=== PATIENT | male | born 1975 | race Caucasian/White ===

== ENCOUNTER → 2019-02-18 11:17 | Outpatient (CLI) | payer OTHER, BC, SELFPAY ==
[2019-02-18 11:17] VITALS: BMI 35.1
--- NOTE | 2019-02-18 11:46 | RAD_ITS ---
STUDY: X-RAY - RIGHT KNEE REASON FOR EXAM: Pain, fall. TECHNIQUE: 4 view(s) of the knee. COMPARISON: None. FINDINGS: Normal visualized distal femur. Normal visualized proximal tibia and fibula. Normal proximal tibiofibular articulation. Normal medial femorotibial compartment. Normal lateral femorotibial compartment. Normal patellofemoral articulation. The soft tissue structures are unremarkable. RAD/Knee 4 or More Views IMPRESSION: Normal x-ray examination of the right knee. Electronically Signed: Jaya Rod MD at 12:24 EDT Tel , Service support ,
== END ==
PROVIDERS: Referring Provider Physician Assistant Surgical; Visit Provider Physician Assistant Surgical
DX: S86.911A Strain of unspecified muscle(s) and tendon(s) at lower leg level, right leg, initial encounter (principal)
CPT/HCPCS: 73564

== ENCOUNTER → 2019-02-20 14:58 | Outpatient (CLI) | payer OTHER, SELFPAY ==
[2019-02-18 11:17] VITALS: BMI 35.1
--- NOTE | 2019-02-20 15:04 | MRI_ITS ---
STUDY: MRI RIGHT KNEE REASON FOR EXAM: Male, 43 years old. Pain. TECHNIQUE: Standardized fat and water weighted pulse sequences were obtained in all 3 orthogonal planes. COMPARISON: X-ray February 18, 2019 FINDINGS: There is partial tear of the posterior horn of the medial meniscus adjacent to the meniscal root, series 7 image . Normal hyaline cartilage of the medial femorotibial compartment. Normal medial femoral condyle and tibial plateau. Normal medial collateral ligamentous complex (MCL). Normal distal semimembranosus, gracilis and semitendinosus tendons. Normal lateral meniscus. Normal hyaline cartilage of the lateral femorotibial compartment. Normal lateral femoral condyle and tibial plateau. Normal proximal tibiofibular articulation. Normal lateral collateral (fibular) ligament. Normal popliteus tendon. Normal biceps femoris tendon. Normal anterior cruciate ligament (ACL). Normal posterior cruciate ligament (PCL). Normal congruent patellofemoral articulation. Normal hyaline cartilage of the patellofemoral compartment. Normal medial and lateral patellar retinaculum. Normal quadriceps tendon. Normal patellar tendon. Normal Hoffa's fat pad. There is no joint effusion. The soft tissues are unremarkable. The otherwise visualized osseous structures are unremarkable. MRI/Lower Ext Joint Only (Routine) IMPRESSION: Medial meniscus tear. Joint effusion Electronically Signed: Gordo Reich MD at 20:51 EDT , Service support ,
== END ==
PROVIDERS: Referring Provider Physician Assistant; Visit Provider Physician Assistant
DX: S86.911A Strain of unspecified muscle(s) and tendon(s) at lower leg level, right leg, initial encounter (principal)
CPT/HCPCS: 73721

== ENCOUNTER 2019-03-18 08:50 | Day surgery (SDC) | payer OTHER, BC, SELFPAY ==
[2019-02-24 14:53] VITALS: BMI 38.0
[2019-03-12 09:35] VITALS: BMI 38.0
[2019-03-18 09:21] VITALS: BP 138/85; PULSE 80; RESP 16; TEMP 37.1; O2SAT 96; BMI 37.6
[2019-03-18] MEDS: Lactated Ringers 1,000 ML 100 ML IV (09:40)
--- NOTE | 2019-03-18 09:41 | EKG12_ITS ---
Test Reason : PREOP Blood Pressure : / mmHG Vent. Rate : 061 BPM Atrial Rate : 061 BPM P-R Int : 182 ms QRS Dur : 102 ms QT Int : 396 ms P-R-T Axes : 040 -04 018 degrees QTc Int : 398 ms Normal sinus rhythm Normal ECG No previous ECGs available Confirmed by JEOVANY DICK, JIAN ([id number]), video tape editor JACE AVITIA ([id number]) on 03/25/2019 1:38:22 PM Referred By: Campos Mccabe Confirmed By:THEE THAYER MD
--- NOTE | 2019-03-18 10:29 | HP.PCM_ITS ---
History and Physical Date of Admission: 03/18/19 Intake Vital Signs 02/24/19 Height 6 ft 02/24/19 Weight: 280 lb 02/24/19 Body Mass Index (BMI) 38.0 Intake Visit Reasons: RIGHT KNEE Is patient in pain?: Yes Pain scale (1-10): 3 Allergies No Known Allergies Allergy (Verified 02/24/19 14:53) Medications NK 02/21/19 [History Confirmed 02/24/19] [facility] Medical History (Updated 02/21/19 @ 10:14 by ASCENCION Duarte) Knee pain (Acute) Social History (Updated 02/24/19 @ 15:10 by Campos Mccabe DO) Smoking Status: Current every day smoker alcohol intake: never HPI RIGHT KNEE: Details: Parts of this documentation were recorded by a scribe, this documentation accurately reflects the service provided and the decisions made by me, Campos Mccabe DO 02/24/19 [id number]. CHAN NOBLES is a 43 year old M here today for right knee pain. Patient notes on 02/18/19 he was at work and he felt a pop in his knee walking down the last step. His knee gave out and he fell onto the ground. He complains of pain over his medial knee and pressure over his patella. Patient complains of knee swelling. He complains of popping and clicking. [facility] and [facility]. He was given a brace which he is wearing at all times. Patient also had an MRI which is here for review. He complains of pain with rotation. Patient is taking advil for pain. Patient is working currently doing his job which does not require a lifting. Patient prefers to keep moving as he has increased pain with prolonged sitting. ROS Musc Reports joint pain, Reports joint swelling Skin/Breast Reports system reviewed and no additional complaints, except as docu Neuro Yes system reviewed and no additional complaints, except as docu Ortho Exam Right Knee Skin/Wound: Yes CDI, No erythema, No ecchymosis Knee ROM: Yes ROM-Extension -20 to 0, Yes ROM-Flexion 0-140 (120) Examination: Yes Med jt line tenderness, Yes Lolita's Test Stability: NML: Anterior Drawer, NML: Posterior Drawer, NML: Valgus 30, NML: Varus 30 Supplemental Info 02/18/2019 x-ray right knee: No acute findings mild spurring patellofemoral joint 02/20/2019 MRI right knee: Posterior horn medial meniscus tear Assessment & Plan Problems 1. Strain of right knee, initial encounter S86.499R Plan Educated the patient about the anatomy of the knee and etiology of his pain. Spoke with him about a meniscus tear and recommended knee arthroscopy. Explained the surgery procedure and healing process. He will be off work for a few days. He will not be able to ambulate for long distances following surgery. Patient has no work restrictions. Follow up for 2 week post op or sooner if pain, swelling, numbness or associated symptoms, or concerns develop. All questions answered. Patient in agreement of plan. Coding Level of Care Code Off vis,new,level 3 Diagnoses Strain of right knee, initial encounter S81.913F ??Encounter type: initial encounter I have re-examined the patient. There are no clinical changes since date of exam
[2019-03-18] MEDS: Bupivacaine 0.5% PF 10 ML VIAL (10:50)
[2019-03-18] MEDS: MethylPREDNISolone Acetate 80 MG/ML Vial (10:53)
[2019-03-18] MEDS: Bupiv/Epi 0.25% 30 ML Vial (11:05)
--- NOTE | 2019-03-18 11:14 | DCINST_ITS ---
Discharge Diet: No Restrictions Weight Bearing Status: Weight bearing as tolerated Keep extremity elevated above heart level: Operative Extremity Call your doctor if you observe: Fever of 101 or Higher, Shortness of breath, Chest pain Additional Instructions: Ice and elevate next 72 hours .keep dressing on clean and dry for 48 hours then may remove begin showering daily but do not submerge in tub or pool. After shower may apply Band-Aids . Encourage knee range of motion weightbearing as tolerated, use crutches until confident in knee then may discontinue. No strenuous activity. When not ambulating keep iced and elevated next 72 hours. Allergies/Adverse Reactions: Allergies No Known Allergies Allergy (Verified 03/12/19 08:12) Medications to take at Discharge NK 02/21/19 Primary Care Physician: Care Physician,No Primary [Primary Care Provider] - Test Results: Test results from this visit will be discussed in further detail at your follow- up appointment, if applicable. Please Follow Up With: Campos Mccabe DO - 2 weeks
--- NOTE | 2019-03-18 11:18 | OP.PCM_ITS ---
Report of Operation Date of Procedure: 03/18/19 Description of Surgical Findings:: Preop diagnosis: Right knee partial root tear medial meniscus Postoperative diagnosis: Right knee partial root tear medial meniscus grade 3 cartilage wear medial femoral condyle and trochlea medial plica band grade 2-3 medial patellar facet Procedure: Right knee arthroscopic partial medial meniscectomy chondroplasty excision of plica Anesthesia: General Estimated blood loss: 5 mL Tourniquet time: 25 minutes minutes 300 mmHg Complications: none Indication for procedure: This is a 43-year-old male who has right knee pain with MRI evidence of medial meniscus tear who wished to proceed with elective arthroscopic surgery to attempt to alleviate his symptoms the patient did wish to proceed with an elective arthroscopic surgery to attempt to alleviate the symptoms. Risk benefits and alternatives of the procedure were reviewed including risk of bleeding infection nerve artery tissue damage need for further surgery continued pain and expected postoperative course. Procedure: The patient was met in the preoperative holding area. The operative extremity was identified by both patient and physician and family and marked. Patient was brought back to the operating room on a wheeled cart and transferred to the operating table in the supine position. Anesthesia was started. A well- padded tourniquet was placed on the operative extremity. A lower extremity leg kennedy was secured to the operative extremity. The contralateral extremity was well-padded and the end of the bed was flexed to 90 degrees. The patient was prepped and draped in the usual sterile fashion. A timeout was called to ensure the proper patient, procedure, and extremity were being contemplated. 0.5% Marcaine with epinephrine was injected into the planned incisional areas under the skin only. An Esmarch was used to exsanguinate the extremity and the tourniquet was inflated. An 11 blade scalpel was used to make a stab incision in the anterior lateral portal. The arthroscope was inserted into the intercondylar notch and inflow and outflow tubes were attached. Arthroscopic visualization began. The medial compartment was entered. An 18-gauge spinal needle was used to establish the placement for anterior medial portal. An 11 blade scalpel was used to make a stab incision. Blunt probe was inserted followed by a meniscal probe. There is large cartilage flaps that were loose of the medial femoral condyle with use of a full-radius shaver gentle chondroplasty was performed removing these cartilages flaps back to a stable rim there was no full thickness cartilage defect there was a partial thickness root tear which was excised with a shaver and ArthroCare wand the meniscal root remained intact in its periphery and the meniscus was stable without subluxation Meinders meniscus was intact the ACL was inspected and found to be intact lateral compartment was entered and was intact the patellofemoral joint did have grade 4 cartilage wear measuring approximately 18 superior to inferior and 12 medial to lateral. There was some grade 2 cartilage wear of the patella chondroplasty was performed of the trochlea a thickened medial plica was rubbing on the cartilage immediately and was excised with a shaver the knee was thoroughly irrigated and intra-articular injection with her standard cocktail was performed informed he did not want to have protected weightbearing after surgery and therefore did not wish to have microfracture or meniscal repair procedures . There was good patellar tracking. The knee was thoroughly irrigated and drained. An intra- articular injection with 5 cc 0.5% Marcaine plain 4 mg of morphine and 40 mg of Depo-Medrol was injected intra-articularly. The arthroscope was removed the portals were closed with 3-0 nylon arthroscopic stitches. Followed by Xeroform 4 x 4's ABDs web roll and an Sung wrap. The tourniquet was let down and the drapes were removed. All counts were correct. The patient was brought back to the PACU in stable condition.
[2019-03-18 11:25] VITALS: BP 130/90; BP 139/97; PULSE 71; RESP 16; TEMP 36.1; O2SAT 96
[2019-03-18 11:30] VITALS: BP 130/90; BP 134/89; PULSE 70; RESP 16; O2SAT 98
[2019-03-18 11:43] VITALS: BP 130/90; BP 137/82; PULSE 73; RESP 16; TEMP 36.2; O2SAT 98
[2019-03-18 12:32] VITALS: BP 122/84; BP 130/90; PULSE 69; RESP 16; TEMP 36.4; O2SAT 99
== END 2019-03-18 12:34 | disposition home or self-care (01) ==
LOC: SDC 08:59 → AC 08:59
PROVIDERS: Referring Provider Orthopaedic Surgery; Visit Provider Orthopaedic Surgery
PROC: (CPT 29870; principal; 2019-03-18 10:15)
DX: S86.911A Strain of unspecified muscle(s) and tendon(s) at lower leg level, right leg, initial encounter (principal); S83.241A Other tear of medial meniscus, current injury, right knee, initial encounter; W18.30XA Fall on same level, unspecified, initial encounter; Y93.9 Activity, unspecified; Y92.89 Other specified places as the place of occurrence of the external cause; Y99.0 Civilian activity done for income or pay; F17.200 Nicotine dependence, unspecified, uncomplicated
CPT/HCPCS: 29881; 93005; J7120; J2405